=== PATIENT | female | born 1940 | race Caucasian/White ===

== ENCOUNTER 2023-02-26 04:16 | Day surgery (SDC) | payer OTHER ==
[2023-02-20 17:00] VITALS: BMI 34.3
[2023-02-26 06:37] VITALS: RESP 18
[2023-02-26] MEDS ORDERED: LIDOCAINE HCL/PF 1% SDV 5ML VIAL ONE (07:22)
[2023-02-26] MEDS ORDERED: LIDOCAINE HCL 1% PRESERVATIVE FREE - 30ML VIAL IJ ONE ×3 (07:26→08:15)
[2023-02-26 09:20] VITALS: BP 135/52; PULSE 61; TEMP 98.7
[2023-02-26] MEDS ORDERED: ACETAMINOPHEN 500 MG TABLET (FP) PO PRN (13:07)
== END 2023-02-26 09:22 | disposition home or self-care (01) ==
LOC: JASU-SURG 04:16
PROVIDERS: ATTEND Pain Medicine Pain Medicine
PROC: 01HY3MZ Insertion of Neurostimulator Lead into Peripheral Nerve, Percutaneous Approach (ICD-10-PCS; principal; 2023-02-26 08:00)
DX: G89.4 Chronic pain syndrome (principal)
CPT/HCPCS: 64555; C1778

== ENCOUNTER 2023-09-10 04:14 | Day surgery (SDC) | payer OTHER ==
[2023-09-05 18:14] VITALS: BMI 34.3
[2023-09-10] MEDS ORDERED: ACETAMINOPHEN 500 MG TABLET (FP) PO PRN (09:44)
[2023-09-10 11:00] VITALS: RESP 18
[2023-09-10] MEDS ORDERED: LIDOCAINE HCL/PF 1% SDV 5ML VIAL ONE (11:33)
[2023-09-10] MEDS ORDERED: LIDOCAINE HCL/PF 2% SDV 5ML VIAL ONE ×2 (12:50→13:39)
[2023-09-10] MEDS ORDERED: LIDOCAINE HCL/PF 2% SDV 5ML VIAL INF ONE ×6 (12:53→13:46)
[2023-09-10 14:53] VITALS: BP 112/64; PULSE 62; TEMP 97.2
== END 2023-09-10 14:45 | disposition home or self-care (01) ==
LOC: JASU-SURG 04:14
PROVIDERS: ATTEND Pain Medicine Pain Medicine
PROC: 015D3ZZ Destruction of Femoral Nerve, Percutaneous Approach (ICD-10-PCS; principal; 2023-09-10 13:15)
DX: M25.561 Pain in right knee (principal)

== ENCOUNTER 2024-06-04 04:25 | Day surgery (SDC) | payer OTHER ==
[2024-06-03 12:52] VITALS: BMI 31.8
[2024-06-04] MEDS ORDERED: LIDOCAINE HCL/PF 1% SDV 5ML VIAL ONE (07:19)
[2024-06-04] MEDS: LIDOCAINE HCL 1% PRESERVATIVE FREE - 30ML VIAL IJ ONE ×2 (13:28)
[2024-06-04 14:06] VITALS: BP 161/83; PULSE 66; RESP 20; TEMP 96.8
== END 2024-06-04 14:42 | disposition home or self-care (01) ==
LOC: JASU-SURG 04:25
PROVIDERS: ATTEND Pain Medicine Pain Medicine
PROC: 01HY3MZ Insertion of Neurostimulator Lead into Peripheral Nerve, Percutaneous Approach (ICD-10-PCS; principal; 2024-06-04 12:30)
DX: G89.4 Chronic pain syndrome (principal); M25.561 Pain in right knee
CPT/HCPCS: 64555; C1778

== ENCOUNTER 2024-08-13 05:09 | Day surgery (SDC) | payer OTHER ==
[2024-08-10 15:23] VITALS: BMI 31.8
[2024-08-13 14:46] VITALS: TEMP 97.3
[2024-08-13] MEDS: BUPIVACAINE HCL/PF 0.25% (2.5MG/ML) 10 ML VIAL IJ ONE ×2 (15:57→16:57)
[2024-08-13] MEDS: LIDOCAINE 1% P/F 10 MG/ML VIAL INF ONE ×2 (15:57→16:56)
[2024-08-13] MEDS: LIDOCAINE HCL/PF 2% SDV 5ML VIAL INF ONE (15:58)
[2024-08-13 17:09] VITALS: BP 143/57; PULSE 66; RESP 17
== END 2024-08-13 17:55 | disposition home or self-care (01) ==
LOC: JASU-SURG 05:09
PROVIDERS: ATTEND Pain Medicine Pain Medicine
PROC: 01HY0MZ Insertion of Neurostimulator Lead into Peripheral Nerve, Open Approach (ICD-10-PCS; principal; 2024-08-13 15:30)
DX: G89.4 Chronic pain syndrome (principal)
CPT/HCPCS: 64575; C1778

== ENCOUNTER 2024-11-22 22:46 | Emergency (ER) | payer OTHER ==
[2024-11-22 22:58] VITALS: BP 141/54; PULSE 69; RESP 18; TEMP 98.1; BMI 32.9
[2024-11-22] MEDS ORDERED: LIDOCAINE 5% TOPICAL PATCH ONE (23:30)
[2024-11-22] MEDS ORDERED: ACETAMINOPHEN 325 MG TABLET (FP) ONE (23:30)
[2024-11-22] MEDS: LIDOCAINE 5% TOPICAL PATCH TP ONE (23:40)
[2024-11-22] MEDS: ACETAMINOPHEN 325 MG TABLET (FP) PO ONE (23:40)
== END 2024-11-23 00:45 | disposition home or self-care (01) ==
LOC: JER 22:46
DX: M25.512 Pain in left shoulder (principal); M79.622 Pain in left upper arm; I10 Essential (primary) hypertension
CPT/HCPCS: 73030-TC-LT-FY; 73060-TC-LT-FY; 99284-25